=== PATIENT | female | born 1980 | race Caucasian/White ===

== ENCOUNTER 2020-07-09 12:20 | Emergency (ER) | payer OTHER ==
[~2020-07-09 12:20] MED LIST: IBUPROFEN800 MG PO; SKELAXIN800 MG PO; VOLTAREN **OUT75 MG PO
[2020-07-09 13:48] LABS: CORONAVIRUS 2019 SARS-COV-2 NEGATIVE (NEGATIVE); INFLUENZA A NAA NEGATIVE (NEGATIVE)
[2020-07-09] MEDS ORDERED: ILOTYCIN1 GM OU (14:07)
== END 2020-07-09 14:40 | disposition home or self-care (01) ==
LOC: FER 12:20
PROVIDERS: Emergency Medicine
DX: B34.9 Viral infection, unspecified (principal); H10.9 Unspecified conjunctivitis; J45.909 Unspecified asthma, uncomplicated; F17.210 Nicotine dependence, cigarettes, uncomplicated; Z20.822 Contact with and (suspected) exposure to COVID-19
CPT/HCPCS: 99284; U0002

== ENCOUNTER 2022-01-14 16:47 | Emergency (ER) | payer OTHER ==
[~2022-01-14 16:47] MED LIST changes: +ILOTYCIN1 GM OU
[2022-01-14 17:43] LABS: BUN/CREAT RATIO (CALC) 11.1 RATIO; CREATININE 0.81 mg/dL (0.51-0.95); POTASSIUM 3.9 mmol/L (3.5-5.1)
[2022-01-14 17:49] LABS: BASOPHIL 0.9 % (0-2); EOSINOPHIL 2.8 % (0-5); HCT 38.3 % (37.0-47.0); HGB 12.4 g/dl (12.5-16.0); LYMPHOCYTE 48.6 % (15-48); MCH 31.2 pg (25.0-31.0); MCHC 32.4 g/dL (32.0-36.0); MCV 96.5 fL (78.0-100.0); MONOCYTE 17.2 % (0-12); MPV 10.5 fL (6.0-9.5); NEUTROPHIL 30.2 % (41-80); NRBC 0; PLT 222 K/uL (150-400); RBC 3.97 M/uL (4.20-5.40); RDW 12.6 % (11.5-14.0); WBC 3.3 K/uL (4.0-10.5)
[2022-01-14 17:56] LABS: INFLUENZA A NAA NEGATIVE (NEGATIVE)
[2022-01-14 18:24] LABS: CORONAVIRUS 2019 SARS-COV-2 POSITIVE (NEGATIVE)
== END 2022-01-14 21:09 | disposition home or self-care (01) ==
LOC: FER 16:47
PROVIDERS: Nurse Practitioner Family
DX: R07.89 Other chest pain (principal); U07.1 COVID-19; Z88.1 Allergy status to other antibiotic agents; Z88.6 Allergy status to analgesic agent; Z87.891 Personal history of nicotine dependence; Z88.8 Allergy status to other drugs, medicaments and biological substances
CPT/HCPCS: 36415; 71046; 80048; 84484; 85025; 93005; U0002